=== PATIENT | male | born 1960 | race Caucasian/White ===

== ENCOUNTER 2019-05-03 07:13 | Emergency (ER) | payer MEDICAID, SELFPAY ==
[2019-05-03 07:22] VITALS: BP 176/101; PULSE 73; RESP 16; TEMP 37.1
--- NOTE | 2019-05-03 08:16 | W.ED.GENAD ---
Discharge Plan Disposition Patient Disposition: HOME Condition: Improving Discharge Details Chief Complaint: Dizzy/Sync Clinical Impression: Bilateral impacted cerumen, Peripheral vertigo, unspecified Primary Care Provider: None,None ED Provider: Tin Siddiqi Home Meds and New Rx's Prescriptions: New meclizine 25 mg tablet 25 mg PO BID-TID PRN (Reason: dizziness) Qty: 10 RF: 0 Discharge Instructions Instructions: Cerumen Impaction (ED), Vertigo (ED) Additional Instructions: Return to the emergency department for any new or worsening symptoms, headache, focal neurological deficits or changes, chest pain, or any further concerns. Otherwise follow-up with your primary care provider for reassessment if not improving on the next week. Referrals: [facility] [Provider Group] (As needed for reassessment) Medical Decision Making Patient presenting the emergency department chief complaint of dizziness. Patient states that this started yesterday and initially denies any specific inciting event. He does state for the last 2 weeks he has felt full in his ears and noticed some diminished hearing. He does state that he has history of significant wax buildup. Patient is very stoic and hard to get much details as he denies any other associated symptoms. 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 Patient does have on exam slight nystagmus to the lateral right gaze otherwise negative hints exam, nonfocal findings with Herb-Hallpike, normal neurological exam, normal cardiac exam. Patient is hypertensive otherwise stable vital signs in no acute signs of distress. Highly suspicious for peripheral vertigo and doubt any CVA, cardiac abnormality given reassuring EKG, and patient denying any other symptoms. Plan to treat with meclizine and Zofran, to remove cerumen that is impacted bilaterally, and reassess patient. After staff sonographer and myself irrigated and removed cerumen from both ear patient was reassessed and stated improvement of symptoms overall. Patient does state history of previous issues with his ears causing similar dizziness/vertigo. Given reassuring neurological exam and otherwise normal exam I feel that patient is safe to be discharged with close return precautions for any change in symptoms otherwise follow-up with primary care provider. After discussion of diagnosis and plan of care patient has no further needs, questions, or concerns and states clear understanding to return to the emergency department for any worsening symptoms. ECG Data Interpretation: EKG reviewed with Dr. Bhardwaj and shows sinus rhythm, rate of 72, no signs of ST elevated [place] HPI General Mode of arrival: ambulatory. Date/Time Provider Initiated Documentation: 05/03/19 07:58. Limitations to Documentation: no limitations. Information obtained by: patient and RN notes reviewed. History of Present Illness 58 year old M presents to the emergency department with the chief complaint of dizziness, described as moderate, Quality is described as other (denies pain), Patient started experiencing this day(s) (1) and it has been constant. No relieving factors improve symptom(s), Movement worsens symptoms . Patient notes no other symptoms.. Patient did receive the following treatments prior to arrival, none Related Data Home Medications Medication Instructions Recorded Confirmed meclizine 25 mg PO BID-TID PRN #10 tab 05/03/19 Previous Rx's Medication Instructions Recorded meclizine 25 mg PO BID-TID PRN #10 tab 05/03/19 Allergies Allergy/AdvReac Type Severity Reaction Status Date / Time codeine Allergy Unverified 05/03/19 08:23 General Stated Complaint: Dizzy/Sync QUINTEN: 3 Review of Systems Constitutional Denies body ache(s), Denies chills, Denies fever(s), Denies frequent falls and Denies headache(s) Eyes Denies change in vision ENT Reports dizziness, Reports otalgia (report ear fullness), Denies headache(s), Reports hearing loss (diminished ), Denies nasal congestion and Denies nasal discharge Cardiovascular Denies chest pain, Denies syncope and Denies dyspnea Respiratory Denies dyspnea Gastrointestinal Reports nausea and Reports vomiting Neurologic Reports as per HPI, Denies confusion, Reports dizziness, Denies syncope, Denies frequent falls, Denies headache(s), Denies focal weakness and Denies sensory deficit Psychiatric Denies confusion [facility] Social History Smoking/Tobacco Use Status: Never Alcohol Intake: current Alcohol Intake frequency: 3 or more drinks per day Substance use type: does not use Do you feel safe at home: Yes Do you feel safe in your relationship?: Yes Exam Const General: cooperative, healthy appearing, no acute distress and well groomed Orientation: alert, awake and oriented x3 HENMT Head: normal to inspection Ears: hearing grossly normal bilaterally, external ears normal and unable to visualize TM bilaterally (due to cerumen) Mouth: oral mucosae normal and moist mucous membranes Throat: posterior oropharynx normal Eyes Visual Oakes: normal visual oakes by confrontation Alignment and Position: alignment normal Periorbital: periorbital findings normal Eyelids: eyelids normal Sclera: sclerae normal Cornea: corneas normal Pupils: PERRL EOM: EOM intact bilaterally and nystagmus (Slightly with right lateral gaze) Neck Neck: normal visual inspection, full ROM, no lymphadenopathy and no meningeal signs Resp Effort & Inspection: normal respiratory effort and able to speak in complete sentences Auscultation: clear to auscultation bilaterally Cardio Rate: regular rate Rhythm: regular rhythm Heart Sounds: S1 normal and S2 normal Neuro General: alert, awake, oriented x3, gait normal, tone normal, moves all extremities, CN's II-XI intact bilaterally, not confused, Herb Hallpike (No lateralization noted) and other (Negative hints exam) Cranial Nerves: nystagmus (Slightly with right lateral gaze) Cognition: normal cognition Speech: speech normal Motor: muscle tone normal throughout, strength 5/5 throughout, no pronator drift and no movement abnormalities noted Sensory Exam: no sensory deficits noted Coordination: [id number] test normal, Romberg test normal and Does not sway with eyes open Course Vital Signs Temperature 37.1 C 05/03/19 07:22 Pulse 73 05/03/19 07:22 Respiratory Rate 16 05/03/19 07:22 Blood Pressure 176/101 H 05/03/19 07:22 Temperature 37.1 C 05/03/19 07:22 Temperature Source Temporal Artery Scan 05/03/19 07:22 Pulse 73 05/03/19 07:22 Respiratory Rate 16 05/03/19 07:22 Respiratory Effort 05/03/19 07:25 Blood Pressure 176/101 H 05/03/19 07:22 Oxygen Delivery Method Room Air 05/03/19 07:22 Oxygen Flow Rate 0 05/03/19 07:22 Procedures Ear Wax Removal Both Ears: Cerumenolytic Used: Cerumenex Results: Re-examined: cerumen removed completely TM Visible: TM(s) erythematous Ear Canal: atraumatic Patient Tolerated Procedure: well Technique: ear canal irrigated and ear canal curetted
[2019-05-03] MEDS: Meclizine 25 MG TAB PO (08:20)
[2019-05-03] MEDS: Ondansetron O.D.T. 4 MG TABEF PO (08:21)
--- NOTE | 2019-05-03 08:29 | ED.GENADUL_ITS ---
Discharge Plan Disposition Patient Disposition: HOME Condition: Improving Discharge Details Chief Complaint: Dizzy/Sync Clinical Impression: Bilateral impacted cerumen, Peripheral vertigo, unspecified Primary Care Provider: None,None ED Provider: Tin Siddiqi Home Meds and New Rx's Prescriptions: New meclizine 25 mg tablet 25 mg PO BID-TID PRN (Reason: dizziness) Qty: 10 RF: 0 Discharge Instructions Instructions: Cerumen Impaction (ED), Vertigo (ED) Additional Instructions: Return to the emergency department for any new or worsening symptoms, headache, focal neurological deficits or changes, chest pain, or any further concerns. Otherwise follow-up with your primary care provider for reassessment if not improving on the next week. Referrals: [facility] [Provider Group] (As needed for reassessment) Medical Decision Making Patient presenting the emergency department chief complaint of dizziness. Patient states that this started yesterday and initially denies any specific inciting event. He does state for the last 2 weeks he has felt full in his ears and noticed some diminished hearing. He does state that he has history of significant wax buildup. Patient is very stoic and hard to get much details as he denies any other associated symptoms. 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 Patient does have on exam slight nystagmus to the lateral right gaze otherwise negative hints exam, nonfocal findings with [place]- Hallpike, normal neurological exam, normal cardiac exam. Patient is hypertensive otherwise stable vital signs in no acute signs of distress. Highly suspicious for peripheral vertigo and doubt any CVA, cardiac abnormality given reassuring EKG, and patient denying any other symptoms. Plan to treat with meclizine and Zofran, to remove cerumen that is impacted bilaterally, and reassess patient. After staff anesthesiologist and myself irrigated and removed cerumen from both ear patient was reassessed and stated improvement of symptoms overall. Patient does state history of previous issues with his ears causing similar dizziness/vertigo. Given reassuring neurological exam and otherwise normal exam I feel that patient is safe to be discharged with close return precautions for any change in symptoms otherwise follow-up with primary care provider. After discussion of diagnosis and plan of care patient has no further needs, questions, or concerns and states clear understanding to return to the emergency department for any worsening symptoms. ECG Data Interpretation: EKG reviewed with Dr. Bhardwaj and shows sinus rhythm, rate of 72, no signs of ST elevated [place] HPI General Mode of arrival: ambulatory . Date/Time Provider Initiated Documentation: 05/03/19 07:58 . Limitations to Documentation: no limitations . Information obtained by: patient and RN notes reviewed . History of Present Illness 58 year old M presents to the emergency department with the chief complaint of dizziness, described as moderate, Quality is described as other (denies pain), Patient started experiencing this day(s) (1) and it has been constant. No relieving factors improve symptom(s), Movement worsens symptoms . Patient notes no other symptoms.. Patient did receive the following treatments prior to arrival, none Related Data Home Medications Medication Instructions Recorded Confirmed meclizine 25 mg PO BID-TID PRN #10 tab 05/03/19 Previous Rx's Medication Instructions Recorded meclizine 25 mg PO BID-TID PRN #10 tab 05/03/19 Allergies Allergy/AdvReac Type Severity Reaction Status Date / Time codeine Allergy Unverified 05/03/19 08:23 General Stated Complaint: Dizzy/Sync QUINTEN: 3 Review of Systems Constitutional Denies body ache(s), Denies chills, Denies fever(s), Denies frequent falls and Denies headache(s) Eyes Denies change in vision ENT Reports dizziness, Reports otalgia (report ear fullness), Denies headache(s), Reports hearing loss (diminished ), Denies nasal congestion and Denies nasal discharge Cardiovascular Denies chest pain, Denies syncope and Denies dyspnea Respiratory Denies dyspnea Gastrointestinal Reports nausea and Reports vomiting Neurologic Reports as per HPI, Denies confusion, Reports dizziness, Denies syncope, Denies frequent falls, Denies headache(s), Denies focal weakness and Denies sensory deficit Psychiatric Denies confusion [facility] Social History Smoking/Tobacco Use Status: Never Alcohol Intake: current Alcohol Intake frequency: 3 or more drinks per day Substance use type: does not use Do you feel safe at home: Yes Do you feel safe in your relationship?: Yes Exam Const General: cooperative, healthy appearing, no acute distress and well groomed Orientation: alert, awake and oriented x3 HENMT Head: normal to inspection Ears: hearing grossly normal bilaterally, external ears normal and unable to visualize TM bilaterally (due to cerumen) Mouth: oral mucosae normal and moist mucous membranes Throat: posterior oropharynx normal Eyes Visual Camara: normal visual camara by confrontation Alignment and Position: alignment normal Periorbital: periorbital findings normal Eyelids: eyelids normal Sclera: sclerae normal Cornea: corneas normal Pupils: PERRL EOM: EOM intact bilaterally and nystagmus (Slightly with right lateral gaze) Neck Neck: normal visual inspection, full ROM, no lymphadenopathy and no meningeal signs Resp Effort & Inspection: normal respiratory effort and able to speak in complete sentences Auscultation: clear to auscultation bilaterally Cardio Rate: regular rate Rhythm: regular rhythm Heart Sounds: S1 normal and S2 normal Neuro General: alert, awake, oriented x3, gait normal, tone normal, moves all extremities, CN's II-XI intact bilaterally, not confused, Herb Hallpike (No lateralization noted) and other (Negative hints exam) Cranial Nerves: nystagmus (Slightly with right lateral gaze) Cognition: normal cognition Speech: speech normal Motor: muscle tone normal throughout, strength 5/5 throughout, no pronator drift and no movement abnormalities noted Sensory Exam: no sensory deficits noted Coordination: [id number] test normal, Romberg test normal and Does not sway with eyes open Course Vital Signs Temperature 37.1 C 05/03/19 07:22 Pulse 73 05/03/19 07:22 Respiratory Rate 16 05/03/19 07:22 Blood Pressure 176/101 H 05/03/19 07:22 Temperature 37.1 C 05/03/19 07:22 Temperature Source Temporal Artery Scan 05/03/19 07:22 Pulse 73 05/03/19 07:22 Respiratory Rate 16 05/03/19 07:22 Respiratory Effort 05/03/19 07:25 Blood Pressure 176/101 H 05/03/19 07:22 Oxygen Delivery Method Room Air 05/03/19 07:22 Oxygen Flow Rate 0 05/03/19 07:22 Procedures Ear Wax Removal Both Ears: Cerumenolytic Used: Cerumenex Results: Re-examined: cerumen removed completely TM Visible: TM(s) erythematous Ear Canal: atraumatic Patient Tolerated Procedure: well Technique: ear canal irrigated and ear canal curetted
--- NOTE | 2019-05-03 08:31 | NUR.NOTE ---
Nursing Note: URI assessment documented in error. PT has no URI symptoms or complaints.
[2019-05-03 08:54] VITALS: PULSE 78; RESP 14; TEMP 37.1; O2SAT 96
--- NOTE | 2019-05-03 09:07 | NUR.NOTE ---
Nursing Note: Both ears irrigated per provider order. Moderate amount discharge removed from both ears.
== END 2019-05-03 09:49 | disposition home or self-care (01) ==
PROVIDERS: Emergency Provider Nurse Practitioner Family
DX: H61.23 Impacted cerumen, bilateral (principal); H81.393 Other peripheral vertigo, bilateral; I10 Essential (primary) hypertension
CPT/HCPCS: 69210; 93005; 99283; 93010

== ENCOUNTER 2021-11-18 13:08 | Observation (INO) | payer OTHER, SELFPAY ==
[2021-11-18] VITALS (51 sets, daily range): BP systolic 148–201; BP diastolic 77–141; PULSE 64–91; RESP 11–85; TEMP 36.4–36.8; O2SAT 92–99
--- NOTE | 2021-11-18 13:15 | DI.RAD_ITS ---
Exam(s) XR CHEST 2V PA LATERAL EXAM: XR CHEST 2V PA LATERAL CLINICAL HISTORY: facial numbness TECHNIQUE: 2D digital imaging was performed of the chest. Two images were obtained. PA and lateral views were obtained. COMPARISON: No exams were available for comparison FINDINGS: MEDIASTINUM: Normal. HEART: Normal. PULMONARY VASCULATURE: Normal. LUNGS: Clear. PLEURAL SPACE: No pleural effusion or pneumothorax. BONE:Within normal limits for the patient's age. OTHER FINDINGS:Normal. IMPRESSION: No acute pulmonary findings. DATA REPOSITORY: RADIATION DOSE DELIVERED:
--- NOTE | 2021-11-18 13:15 | RT.EKG_ITS ---
APPROVED REPORT Exam: Resting ECG Reason for Exam: TIA Patient Location: E HR:68 bpm ECG Measurements Heart Rate 68 AXIS AK 171 P 56 QRSd 95 QRS 45 QT 387 T 53 QTc 413 Conclusion Sinus rhythm...normal P axis, V-rate 60- 99
--- NOTE | 2021-11-18 13:15 | RT.EKG_ITS ---
APPROVED REPORT Exam: Resting ECG Reason for Exam: facial numbness Patient Location: E HR:72 bpm ECG Measurements Heart Rate 72 AXIS SD 164 P 51 QRSd 89 QRS 46 QT 369 T 57 QTc 404 Conclusion Sinus rhythm...normal P axis, V-rate 60- 99
--- NOTE | 2021-11-18 13:30 | DI.CT_ITS ---
Exam(s) CT HEAD - STROKE PROTOCOL CT BRAIN NECK CTA EXAM: CT HEAD - STROKE PROTOCOL CLINICAL HISTORY: R sided facial numbness. TECHNIQUE: Imaging Protocol: Axial CT angiography was performed with multi-slice acquisition and mu lti-planar and/or 3D reconstructions. CONTRAST MATERIAL: Intravenous: Omnipaque 350 Contrast volume:85 mL COMPARISON: No previous for comparison. FINDINGS: CT Head W/O and W: Ventricles and Extra axial spaces: Normal in size and morphology for the patient's age. Hemorrhage: None. Cerebral parenchyma: No evidence of an acute territorial infarct. There are areas of decreased atten uation in the white matter consistent with chronic microvascular ischemic disease. There is a round area of decreased attenuation in the left basal ganglia the likely reflecting a remote lacunar infarc t Midline shift: None. Brainstem/Cerebellum: Normal. Calvarium: Normal. Visualized Paranasal sinuses/Mastoids: Mucous retention cysts or polyps are seen in the maxillary sin uses. There is opacification of the left frontal sinus. The remaining visualized paranasal sinuses and mastoid air cells are clear. Soft Tissues: Unremarkable. Enhancement: Unremarkable. CTA Neck W: Common Carotid: Right: No dissection, occlusion or significant stenosis. Left: No dissection, occlusion or significant stenosis. External Carotid: Right: No occlusion or significant stenosis. Left: No occlusion or significant stenosis. Internal Carotid: Right: No dissection, occlusion or significant stenosis. Left: No dissection, occlusion or significant stenosis. Vertebral Artery: Right: No dissection, occlusion or significant stenosis. Left: No dissection, occlusion or significant stenosis. Lung Apices: Normal. Bones: Within normal limits for the patient's age. Moderate degenerative changes are seen in the cerv ical spine. Soft Tissues: Normal. Thyroid gland: There is a multinodular thyroid gland. The largest nodule lies in the left lobe measu res 2 cm. Nonemergent thyroid ultrasound should be considered for further evaluation. CTA Brain W: Internal Carotid Arteries: Normal. Mild atherosclerosis. Anterior Cerebral Arteries: Right: No aneurysm, occlusion or significant stenosis. Left: No aneurysm, occlusion or significant stenosis. Middle Cerebral Arteries: Right: No aneurysm, occlusion or significant stenosis. Left: No aneurysm, occlusion or significant stenosis. Posterior Cerebral Arteries: Right: No aneurysm, occlusion or significant stenosis. Left: No aneurysm, occlusion or significant stenosis. Vertebral Arteries: Right: No aneurysm, occlusion or significant stenosis. Left: No aneurysm, occlusion or significant stenosis. Basilar Artery: No aneurysm, occlusion or significant stenosis. IMPRESSION: 1. No large vessel occlusion or significant stenosis on the CT angiography of the head. 2. No acute intracranial process. 3. No occlusion or significant stenosis on the CT angiography of the neck. 4. Multinodular thyroid gland. The largest nodule appears to measure 2 cm in the left lobe. Nonemer gent thyroid ultrasound is recommended for further evaluation. RADIATION DOSE DELIVERED: 2,126.38mGy.cm Total DLP 2,126.38mGy.cm Total DLP DATA REPOSITORY: All CT scans at this facility are submitted to the National Radiology Data Registry (NRDR) Dose Index Registry (DIR) with the [employer] (ACR). RADIATION OPTIMIZATION: All CT scans at this facility use at least one of these dose optimization te chniques: automated exposure control; mA and/or kV adjustment per patient size (includes targeted exa ms where dose is matched to clinical indication); or iterative reconstruction.
[2021-11-18 13:48] LABS: Abs Immature Grans 0.01 10^3/uL (0.0-0.06); Absolute Basophil Count 0.03 10^3/uL (0.0-0.2); Absolute Eosinophil Count 0.06 10^3/uL (0.0-0.7); Absolute Lymphocyte Count 1.56 10^3/uL (1.2-3.4); Absolute Monocyte Count 0.19 10^3/uL (0.1-0.8); Absolute Neutrophil Count 1.61 10^3/uL (1.2-6.7); Basophils % 0.9; Eosinophils % 1.7; HCT 48.7 % (40.0-50.0); HGB 16.2 g/dL (13.5-17.5); Immature Grans % 0.3; Lymphocytes % 45.1; MCH 29.5 pg (27.0-33.0); MCHC 33.3 % (32.0-36.0); MCV 88.5 fL (80-95); MPV 9.2 fL (8.0-11.0); Monocytes % 5.5; Neutrophils % 46.5; Nucleated RBC 0 %; RDW 12.2 % (11.8-14.1); RDW-SD 39.6 fL; WBC 3.46 10^3/uL (4.4-10.8)
[2021-11-18 14:02] LABS: Platelet Count 81 10^3/uL (130-400)
[2021-11-18 14:08] LABS: INR 1.1 (0.9-1.1); Prothrombin Time 11.4 sec (9.3-11.0)
--- NOTE | 2021-11-18 14:13 | ED.GENADUL_ITS ---
Discharge Plan Disposition Patient Disposition: STILL A PATIENT Condition: Stable Discharge Details Clinical Impression: Rt facial numbness Primary Care Provider: None,None ED Provider: Di Scott Home Meds and New Rx's Prescriptions: No Action No Known Home Meds RF: 0 Medical Decision Making <CONSTANTINE Church - Last Filed: 11/18/21 16:56> This is a 61-year-old gentleman presenting to the ER for right sided facial numbness began around 10 AM this morning and resolved on its own in approximately 10 minutes. He report similar episodes over the summer but never had any medical evaluation at that time. He does not have a primary care provider and does not take any medications currently. He is currently asymptomatic and neurologically intact. Plan is to obtain CT imaging of the brain and CTA of brain and neck as well as initiating a cardiac work-up. We will also place the patient on the care management list of expedite outpatient primary care follow-up. He presents hypertensive at 201/98 but denies any headache, visual changes, neck pain, chest pain, shortness of breath, numbness, tingling, weakness. Repeat blood pressure although hypertensive is trending downward. Will monitor his blood pressure closely. Medical Records Medical records reviewed: Yes I reviewed the patient's medical records. Imaging Data Radiologic Study: Attestation: I personally reviewed and interpreted this imaging study as follows: Imaging: CT Scan Radiologist's impression: Exam(s) CT HEAD - STROKE PROTOCOL CT BRAIN NECK CTA EXAM: CT HEAD - STROKE PROTOCOL CLINICAL HISTORY: R sided facial numbness. TECHNIQUE: Imaging Protocol: Axial CT angiography was performed with multi- slice acquisition and multi-planar and/or 3D reconstructions. CONTRAST MATERIAL: Intravenous: Omnipaque 350 Contrast volume:85 mL COMPARISON: No previous for comparison. FINDINGS: CT Head W/O and W: Ventricles and Extra axial spaces: Normal in size and morphology for the patient's age. Hemorrhage: None. Cerebral parenchyma: No evidence of an acute territorial infarct. There are a reas of decreased attenuation in the white matter consistent with chronic microvascular ischemic disease. There is a round area of decreased attenuation in the left basal ganglia the likely reflecting a remote lacunar infarct Midline shift: None. Brainstem/Cerebellum: Normal. Calvarium: Normal. Visualized Paranasal sinuses/Mastoids: Mucous retention cysts or polyps are seen in the maxillary sinuses. There is opacification of the left frontal sinus. The remaining visualized paranasal sinuses and mastoid air cells are clear. Soft Tissues: Unremarkable. Enhancement: Unremarkable. CTA Neck W: Common Carotid: Right: No dissection, occlusion or significant stenosis. Left: No dissection, occlusion or significant stenosis. External Carotid: Right: No occlusion or significant stenosis. Left: No occlusion or significant stenosis. Internal Carotid: Right: No dissection, occlusion or significant stenosis. Left: No dissection, occlusion or significant stenosis. Vertebral Artery: Right: No dissection, occlusion or significant stenosis. Left: No dissection, occlusion or significant stenosis. Lung Apices: Normal. Bones: Within normal limits for the patient's age. Moderate degenerative changes are seen in the cervical spine. Soft Tissues: Normal. Thyroid gland: There is a multinodular thyroid gland. The largest nodule lies in the left lobe measures 2 cm. Nonemergent thyroid ultrasound should be considered for further evaluation. CTA Brain W: Internal Carotid Arteries: Normal. Mild atherosclerosis. Anterior Cerebral Arteries: Right: No aneurysm, occlusion or significant stenosis. Left: No aneurysm, occlusion or significant stenosis. Middle Cerebral Arteries: Right: No aneurysm, occlusion or significant stenosis. Left: No aneurysm, occlusion or significant stenosis. Posterior Cerebral Arteries: Right: No aneurysm, occlusion or significant stenosis. Left: No aneurysm, occlusion or significant stenosis. Vertebral Arteries: Right: No aneurysm, occlusion or significant stenosis. Left: No aneurysm, occlusion or significant stenosis. Basilar Artery: No aneurysm, occlusion or significant stenosis. IMPRESSION: 1. No large vessel occlusion or significant stenosis on the CT angiography of the head. 2. No acute intracranial process. 3. No occlusion or significant stenosis on the CT angiography of the neck. 4. Multinodular thyroid gland. The largest nodule appears to measure 2 cm in the left lobe. Nonemergent thyroid ultrasound is recommended for further evaluation. Radiologic Study #2: Attestation: I personally reviewed and interpreted this imaging study as follows: Imaging: X-Ray Radiologist's impression: XR CHEST 2V PA LATERAL CLINICAL HISTORY facial numbness TECHNIQUE 2D digital imaging was performed of the chest. [Two] images were obtained. [PA and lateral][][] views were obtained. COMPARISON [No exams were available for comparison] [] FINDINGS MEDIASTINUM: [Normal.] [] HEART: [Normal.] [] PULMONARY VASCULATURE: [Normal.] [] LUNGS: [Clear.] [] PLEURAL SPACE: [No pleural effusion or pneumothorax.] [] BONE:[Within normal limits for the patient's age.] [] OTHER FINDINGS:[Normal.] [] IMPRESSION [No acute pulmonary findings. Lab Data Lab results reviewed: Yes I reviewed the patient's lab results. Labs: Laboratory Tests Range/Units 11/18/21 11/18/21 11/18/21 13:35 13:35 13:35 WBC (4.4-10.8) 10^3/uL 3.46 L RBC (4.36-5.78) 10^6/uL 5.50 Hgb (13.5-17.5) g/dL 16.2 Hct (40.0-50.0) % 48.7 MCV (80-95) fL 88.5 MCH (27.0-33.0) pg 29.5 MCHC (32.0-36.0) % 33.3 RDW (11.8-14.1) % 12.2 Plt Count (130-400) 10^3/uL 81 L MPV (8.0-11.0) fL 9.2 Immature Gran % 0.3 Neutrophils % 46.5 Lymphocytes % 45.1 Monocytes % 5.5 Eosinophils % 1.7 Basophils % 0.9 Nucleated RBC % % 0 Absolute Neutrophils (1.2-6.7) 10^3/uL 1.61 Absolute Lymphocytes (1.2-3.4) 10^3/uL 1.56 Absolute Monocytes (0.1-0.8) 10^3/uL 0.19 Absolute Eosinophils (0.0-0.7) 10^3/uL 0.06 Absolute Basophils (0.0-0.2) 10^3/uL 0.03 PT (9.3-11.0) sec 11.4 H INR (0.9-1.1) 1.1 Sodium (136-145) mmol/L 141 Potassium (3.5-5.1) mmol/L 4.6 Chloride (98-107) mmol/L 105 Carbon Dioxide (21.0-32.0) mmol/L 29.4 Anion Gap (3-11) mmol/L 6.6 BUN (7-18) mg/dL 12 Creatinine (0.70-1.30) mg/dL 1.0 Estimated GFR/1.73 m2 (mL/min/1.73m2) >= 60.00 Glucose (74-106) mg/dL 109 H Calcium (8.5-10.1) mg/dL 9.0 Magnesium (1.8-2.4) mg/dL 2.4 Total Bilirubin (0.2-1.0) mg/dL 0.7 AST (15-37) U/L 16 ALT (16-63) U/L 25 Alkaline Phosphatase (46-116) U/L 37 L Troponin I (<or=60) ng/L < 50 Total Protein (6.4-8.2) g/dL 7.7 Albumin (3.4-5.0) g/dL 4.2 Urine Color (Yellow) Urine Clarity (Clear) Urine pH (5-8) Ur Specific Gallagher (1.005-1.025) Urine Protein (Negative) mg/dL Urine Ketones (Negative) mg/dL Urine Blood (Negative) Urine Nitrite (Negative) Urine Bilirubin (Negative) Urine Urobilinogen (Up TO 0.2) EU/dL Ur Leukocyte Esterase (Negative) Urine Glucose (Negative) mg/dL Ethyl Alcohol (<10) mg/dL < 10.0 Range/Units 11/18/ 14:00 WBC (4.4-10.8) 10^3/uL RBC (4.36-5.78) 10^6/uL Hgb (13.5-17.5) g/dL Hct (40.0-50.0) % MCV (80-95) fL MCH (27.0-33.0) pg MCHC (32.0-36.0) % RDW (11.8-14.1) % Plt Count (130-400) 10^3/uL MPV (8.0-11.0) fL Immature Gran % Neutrophils % Lymphocytes % Monocytes % Eosinophils % Basophils % Nucleated RBC % % Absolute Neutrophils (1.2-6.7) 10^3/uL Absolute Lymphocytes (1.2-3.4) 10^3/uL Absolute Monocytes (0.1-0.8) 10^3/uL Absolute Eosinophils (0.0-0.7) 10^3/uL Absolute Basophils (0.0-0.2) 10^3/uL PT (9.3-11.0) sec INR (0.9-1.1) Sodium (136-145) mmol/L Potassium (3.5-5.1) mmol/L Chloride (98-107) mmol/L Carbon Dioxide (21.0-32.0) mmol/L Anion Gap (3-11) mmol/L BUN (7-18) mg/dL Creatinine (0.70-1.30) mg/dL Estimated GFR/1.73 m2 (mL/min/1.73m2) Glucose (74-106) mg/dL Calcium (8.5-10.1) mg/dL Magnesium (1.8-2.4) mg/dL Total Bilirubin (0.2-1.0) mg/dL AST (15-37) U/L ALT (16-63) U/L Alkaline Phosphatase (46-116) U/L Troponin I (<or=60) ng/L Total Protein (6.4-8.2) g/dL Albumin (3.4-5.0) g/dL Urine Color (Yellow) Yellow Urine Clarity (Clear) Clear Urine pH (5-8) 6.0 Ur Specific Gallagher (1.005-1.025) 1.020 Urine Protein (Negative) mg/dL Negative Urine Ketones (Negative) mg/dL Negative Urine Blood (Negative) Negative Urine Nitrite (Negative) Negative Urine Bilirubin (Negative) Negative Urine Urobilinogen (Up TO 0.2) EU/dL 0.2 Ur Leukocyte Esterase (Negative) Negative Urine Glucose (Negative) mg/dL Negative Ethyl Alcohol (<10) mg/dL ECG Data Attestation: I personally reviewed and interpreted this ECG (s) as follows: Interpretation: Please see official report by Dr. Bhagat. Sinus rhythm, ventricular rate of 72, no STEMI. <CONSTANTINE Chen - Last Filed: 11/18/21 18:20> Care accepted in signout from Mmeo Lee physician buyer assistant Patient had a TIA. ABCD 2 score is 3, he has no outpatient primary care physician think at this time he benefit from admission to the hospital Given 162 mg of aspirin and Plavix 75 He is agreeable to admission at this time He is neurologically intact and pre and post assessment Case discussed with Dr. Wallace is willing to accept patient HPI <CONSTANTINE Church - Last Filed: 11/18/21 16:56> General Mode of arrival: ambulatory . Date/Time Provider Initiated Documentation: 11/18/21 13:09 . Limitations to Documentation: no limitations . Information obtained by: patient and family . HPI Narrative: This is a 61-year-old gentleman, reports drinking at least 6 alcoholic drinks daily, presenting to the ER for evaluation of right facial numbness. Patient states that approximately 10:00 this morning while doing the dishes the right side of his face went numb, denies weakness, and this lasted for approximately 10 minutes. He states this same thing happened a few times this summer but he never sought any medical attention. He does not have a primary care doctor and has not seen a doctor in many years. He is fully vaccinated against Covid. He denies any headache, visual changes, neck pain, chest pain, shortness of breath, abdominal pain, nausea, vomiting, numbness, tingling, weakness in his extremities. He is currently asymptomatic. Related Data Home Medications Medication Instructions Recorded Confirmed Unknown [No Known Home Meds] 11/18/21 11/18/21 Allergies Allergy/AdvReac Type Severity Reaction Status Date / Time codeine Allergy Unverified 11/18/21 13:20 General Stated Complaint: CVA/TIA QUINTEN: 3 Review of Systems <CONSTANTINE Church - Last Filed: 11/18/21 16:56> Constitutional Constitutional: Denies fatigue, Denies fever(s), Denies headache(s) and Denies weakness Eyes Eyes: Denies change in vision ENT Ears, Nose, Mouth, and Throat: Denies headache(s) Cardiovascular Cardiovascular: Denies chest pain and Denies dyspnea Respiratory Respiratory: Denies cough and Denies dyspnea Gastrointestinal Gastrointestinal: Denies abdominal pain, Denies nausea and Denies vomiting Genitourinary Genitourinary: Denies dysuria Musculoskeletal Musculoskeletal: Denies back pain and Denies tingling Integumentary/Breasts Skin/Breast: Denies rash Neurologic Neurologic: Denies headache(s), Reports numbness (Resolved), Denies tingling and Denies weakness Endocrine Endocrine: Denies fatigue Hematologic/Lymphatic Hematologic/Lymphatic: Denies easy bleeding and Denies easy bruising PFSH <CONSTANTINE Church - Last Filed: 11/18/21 16:56> All Active Problems (Updated 11/18/21 @ 15:44 by CONSTANTINE Cuhrch) Rt facial numbness (Acute) Social History Smoking/Tobacco Use Status: Never Smoking risk assessment performed?: Yes Alcohol Intake: current Alcohol Intake frequency: 3 or more drinks per day Alcohol type: beer Substance use type: does not use Do you feel safe at home: Yes Do you feel safe in your relationship?: Yes Exam <CONSTANTINE Church - Last Filed: 11/18/21 16:56> Const General: cooperative, healthy appearing, comfortable and no acute distress Orientation: alert, awake and oriented x3 HENMT Head: normal to inspection, normocephalic and atraumatic Face and sinus: normal facial exam Mouth: moist mucous membranes Eyes General: appearance normal, both eyes and all related structures Alignment and Position: alignment normal Periorbital: periorbital findings normal Eyelids: eyelids normal Conjunctivae: conjunctivae normal Sclera: sclerae normal Cornea: corneas normal Pupils: PERRL EOM: EOM intact bilaterally Direct ophthalmoscopy: normal light reflex Neck Neck: normal visual inspection, full ROM, no meningeal signs, trachea midline, supple and nontender Resp Effort & Inspection: normal respiratory effort and able to speak in complete sentences Auscultation: clear to auscultation bilaterally Cardio Rate: regular rate Rhythm: regular rhythm GI Palpation: soft, not firm, no guarding, no pulsatile masses and nontender Back/Spine/Pelvis Back: No back tenderness Skin General skin exam: no rashes or lesions noted Neuro General: patient alert, patient awake, patient oriented x3, moves all extremities and no focal motor deficits Cranial Nerves: CN's II-XI intact bilaterally Cognition: normal cognition Speech: speech normal Gait: normal gait Motor: muscle tone normal throughout, strength 5/5 throughout, no pronator drift, no movement abnormalities noted and no fasciculations Sensory Exam: no sensory deficits noted Coordination: [id number] test normal and Does not sway with eyes open Extrem General: normal to inspection, full ROM, capillary refill normal, no pedal edema and no calf tenderness Psych Appearance: grossly normal Mental Status: mental status grossly normal Course <CONSTANTINE Church - Last Filed: 11/18/21 16:56> Vital Signs Vital signs: Vital Signs Temperature 36.4 C L 11/18/21 13:13 Pulse 77 11/18/21 13:13 Respiratory Rate 16 11/18/21 13:13 Blood Pressure 201/98 H 11/18/21 13:13 Pulse Oximetry 97 11/18/21 13:13 Temperature 36.4 C L 11/18/21 13:13 Temperature Source Skin 11/18/21 13:13 Pulse 77 11/18/21 13:13 Respiratory Rate 16 11/18/21 13:13 Respiratory Effort Non-Labored 11/18/21 13:13 Blood Pressure 201/98 H 11/18/21 13:13 Blood Pressure Position Sitting 11/18/21 13:13 Pulse Oximetry 97 11/18/21 13:13 Oxygen Delivery Method Room Air 11/18/21 13:13 Oxygen Flow Rate 0 11/18/21 13:13 Pain Level 0 11/18/21 13:13 Lab/Test Results Lab/Test Results: Laboratory Tests Range/Units 11/18/21 13:35 WBC (4.4-10.8) 10^3/uL 3.46 L RBC (4.36-5.78) 10^6/uL 5.50 Hgb (13.5-17.5) g/dL 16.2 Hct (40.0-50.0) % 48.7 MCV (80-95) fL 88.5 MCH (27.0-33.0) pg 29.5 MCHC (32.0-36.0) % 33.3 RDW (11.8-14.1) % 12.2 Plt Count (130-400) 10^3/uL 81 L MPV (8.0-11.0) fL 9.2 Immature Gran % 0.3 Neutrophils % 46.5 Lymphocytes % 45.1 Monocytes % 5.5 Eosinophils % 1.7 Basophils % 0.9 Nucleated RBC % % 0 Absolute Neutrophils (1.2-6.7) 10^3/uL 1.61 Absolute Lymphocytes (1.2-3.4) 10^3/uL 1.56 Absolute Monocytes (0.1-0.8) 10^3/uL 0.19 Absolute Eosinophils (0.0-0.7) 10^3/uL 0.06 Absolute Basophils (0.0-0.2) 10^3/uL 0.03 Sign Out <CONSTANTINE Church - Last Filed: 11/18/21 16:56> Sign Out Data: Sign Out Comment: Presented for a right sided facial numbness that lasted for 10 minutes, began at 10 AM, asymptomatic now. Similar symptoms over the summer. Normal CTA of the neck and brain and CT of the brain. Work-up thus far unremarkable. He presented hypertensive blood pressure is trending downward, monitoring closely. Patient placed on the care management list to help expedite outpatient primary care follow-up. Currently neurologically intact. Awaiting delta troponin, reassessment, and potential hypertension intervention. Last updated by Memo Lee PA at 11/18/21 15:47 PAWSS <CONSTANTINE Church - Last Filed: 11/18/21 16:56> Have you Been Recently Intoxicated or Drunk Within the Last 30 days?: Yes Have you Ever Experienced Previous Episodes of Alcohol Withdrawal?: Yes Have you ever Experienced Withdrawal Seizures?: No Have you ever Experienced Delirium Tremens(DT)s?: No Have you ever undergone Alcohol Rehabilitation Treatment (i.e, inpt ot outpatient treatment programs)?: No Have you ever Experienced Blackouts?: No Have you ever Combined Alcohol with other Downers within the last 90 days?: No Have you ever Combined Alcohol with any other Substance of Abuse during the last 90 days?: No Positive Blood Alcohol level on Presentation? [PCS.BAL]: No Evidence of Increased Autonomic Activity (i.e. HR>120, tremor, sweating, agitation, nausea)?: No Result: 2
[2021-11-18 14:17] LABS: ALT 25 U/L (16-63); AST 16 U/L (15-37); Albumin 4.2 g/dL (3.4-5.0); Alkaline Phosphatase 37 U/L (46-116); Anion Gap 6.6 mmol/L (3-11); BUN 12 mg/dL (7-18); Bilirubin, Total 0.7 mg/dL (0.2-1.0); CO2 29.4 mmol/L (21.0-32.0); Chloride 105 mmol/L (98-107); Glucose 109 mg/dL (74-106); Magnesium 2.4 mg/dL (1.8-2.4); Potassium 4.6 mmol/L (3.5-5.1); Sodium 141 mmol/L (136-145); Total Protein 7.7 g/dL (6.4-8.2); Troponin I < 50 ng/L (<or=60)
[2021-11-18 14:18] LABS: Bilirubin Negative (Negative); Blood Negative (Negative); Clarity Clear (Clear); Glucose Negative (Negative); Ketones Negative (Negative); Leukocyte Esterase Negative (Negative); Nitrite Negative (Negative); Urobilinogen 0.2 EU/dL (Up TO 0.2)
[2021-11-18 14:23] LABS: ETHANOL BLOOD < 10.0 mg/dL (<10)
[2021-11-18] MEDS: Omnipaque 350 MG/ML 100 ML BTL 85 ML IJ (14:56)
--- NOTE | 2021-11-18 15:39 | NUR.NOTE ---
Nursing Note: CARE MANAGMENT GIVEN PT INFO TO ESTABLISH PCP. [facility]
[2021-11-18 16:58] LABS: Troponin I < 50 ng/L (<or=60)
[2021-11-18] MEDS: Clopidogrel 75 MG TAB PO (17:23)
[2021-11-18] MEDS: Aspirin 81 MG CHEW 162 MG CH (17:23)
[2021-11-18 18:53] LABS: COVID-19 PCR Negative (Negative); Source Nasal/Nares
--- NOTE | 2021-11-19 | DI.MRI_ITS ---
Exam(s) MR BRAIN WO/W EXAM: MR BRAIN WO/W CLINICAL HISTORY: facial paresthesia TECHNIQUE: Multiplanar multisequence MRI of the brain was performed. CONTRAST MATERIAL: IV Contrast: 19 ML of Dotarem contrast administered. COMPARISON: CT CT HEAD - STROKE PROTOCOL from 11/18/[address] HEAD - STROKE PROTOCOL from 11/18/2021 FINDINGS: VENTRICLES AND EXTRA AXIAL SPACES: Normal in size and morphology for the patient's age. HEMORRHAGE: None. CEREBRAL PARENCHYMA: No focus of restricted diffusion to suggest acute infarct. No space-occupying le mikala identified. There are few areas of hyperintense signal on the FLAIR and T2 weighted images in th e white matter likely reflecting chronic microvascular ischemic disease. MIDLINE SHIFT: None. BRAINSTEM/CEREBELLUM: Normal. CALVARIUM: Normal. ENHANCEMENT: No suspicious enhancement identified. VISUALIZED PARANASAL SINUSES/MASTOIDS: Small mucous retention cysts or polyps are seen in the maxilla ry sinuses. There is opacification of the left frontal sinus. There is also opacification of the ri ght mastoid air cells. [place]: Normal flow void. PIT[place]ARY [place]AND: Unremarkable. OTHER FINDINGS: IMPRESSION: No evidence of an intracranial mass, enhancing lesion or acute infarct. DATA REPOSITORY:
[2021-11-19 03:22] VITALS: BP 145/91; PULSE 63; RESP 20; TEMP 36.9; O2SAT 91
--- NOTE | 2021-11-19 06:56 | W.PM.HP.N ---
Date of service: 11/18/21 Time of Service: 18:08 Assessment and Plan Assessment and plan (1) Rt facial numbness: Status: Acute Assessment and plan: No findings on CT brain, CTA brain/neck. MRI ordered / pending. Possible result of hypertensive emergency. Aspirin now; then re-evaluate whether daily aspirin indicated after further investigations / MRI. (2) Alcohol abuse: Status: Chronic Assessment and plan: Daily intake of alcohol since age of 18. Monitor for withdrawal; did not initiate CIWA precautions but ordered prn ativan. Anticipate d/c after MRI today. He is not interested in alcohol cessation at this time. Encouraged him to begin cutting back and then discuss further when he has established with a PCP. Thiamine and folic acid initiated. (3) Hypertension: Status: Chronic Assessment and plan: On no medications. Hasn't had medical care for appx 10 years. BP elevated on admission and has improved. Initiate amlodipine 5 mg daily. He will be scheduled for a hospital follow up. He would like to have a PCP at the [facility]. History of Present Illness History of Present Illness Chief Complaint: Numbness of right cheek Narrative: This is a 61-year-old [facility] and reports drinking at least 6-8 alcoholic drinks daily, presenting to the ER for evaluation of right facial numbness. Patient states that approximately 10:00 on the morning of admission while doing the dishes the right side of his face felt numb; denies weakness, and this lasted for approximately 10 minutes. He endorsed similar symptoms on occasion over the past summer. He is fully vaccinated against Covid. No headache, visual changes, neck pain, chest pain, shortness of breath, abdominal pain, nausea, vomiting, numbness, tingling, weakness in his extremities. At the time of admission he was asymptomatic. CT head, CTA head/neck w/o acute findings. Incidently finding of multinodular thyroid. Lab was unremarkable other than a mild leukocytosis of 3.46, platelets of 81. Initial BP of 201/98. EKG showed NSR w/o ST, T-wave abnormalities. Review of Systems All systems reviewed & are unremarkable except as noted in HPI and below PFSH All Active Problems (Updated 11/19/21 @ 07:08 by Kilo Martinez MD) Hypertension (Chronic) Alcohol abuse (Chronic) Rt facial numbness (Acute) Social History Smoking/Tobacco Use Status: Never Smoking risk assessment performed?: Yes Alcohol Intake: current Alcohol Intake frequency: 3 or more drinks per day Alcohol type: beer Substance use type: does not use Do you feel safe at home: Yes Do you feel safe in your relationship?: Yes Meds Allergies and Home Medications Allergies Allergy/AdvReac Type Severity Reaction Status Date / Time codeine Allergy Unverified 11/18/21 13:20 Home Medications Medication Instructions Recorded Confirmed Type Unknown [No Known Home Meds] 11/18/21 11/18/21 History Exam Const General: cooperative and no acute distress Nutritional Appearance: overweight Orientation: alert and oriented x3 HENMT Head: normocephalic Ears: hearing grossly normal bilaterally Eyes General: appearance normal, both eyes and all related structures Sclera: sclerae normal Pupils: PERRL Neck Neck: full ROM and no JVD Resp Effort & Inspection: normal respiratory effort Auscultation: clear to auscultation bilaterally Cardio Rate: regular rate Rhythm: regular rhythm Heart Sounds: S1 normal and S2 normal GI Inspection: normal to inspection Palpation: soft and nontender Skin General skin exam: no rashes or lesions noted Neuro General: no focal motor deficits Cranial Nerves: facial strength normal Cognition: normal cognition Speech: speech normal Extrem General: no pedal edema and no calf tenderness Results Labs Result diagrams: 11/19/21 07:05 11/18/21 13:35 Labs: Laboratory Results - last 24 hr 11/18/21 11/18/21 11/18/21 13:35 13:35 13:35 WBC 3.46 L RBC 5.50 Hgb 16.2 Hct 48.7 MCV 88.5 MCH 29.5 MCHC 33.3 RDW 12.2 Plt Count 81 L MPV 9.2 Immature Gran % 0.3 Neutrophils % 46.5 Lymphocytes % 45.1 Monocytes % 5.5 Eosinophils % 1.7 Basophils % 0.9 Nucleated RBC % 0 Absolute Neutrophils 1.61 Absolute Lymphocytes 1.56 Absolute Monocytes 0.19 Absolute Eosinophils 0.06 Absolute Basophils 0.03 PT 11.4 H INR 1.1 Sodium 141 Potassium 4.6 Chloride 105 Carbon Dioxide 29.4 Anion Gap 6.6 BUN 12 Creatinine 1.0 Estimated GFR/1.73 m2 >= 60.00 Glucose 109 H Calcium 9.0 Magnesium 2.4 Total Bilirubin 0.7 AST 16 ALT 25 Alkaline Phosphatase 37 L Troponin I < 50 Total Protein 7.7 Albumin 4.2 Urine Color Urine Clarity Urine pH Ur Specific [employer] Urine Protein Urine Ketones Urine Blood Urine Nitrite Urine Bilirubin Urine Urobilinogen Ur Leukocyte Esterase Urine Glucose Ethyl Alcohol < 10.0 COVID-19 Source SARS-CoV-2 (PCR) 11/18/21 11/18/21 11/18/21 14:00 16:35 17:40 WBC RBC Hgb Hct MCV MCH MCHC RDW Plt Count MPV Immature Gran % Neutrophils % Lymphocytes % Monocytes % Eosinophils % Basophils % Nucleated RBC % Absolute Neutrophils Absolute Lymphocytes Absolute Monocytes Absolute Eosinophils Absolute Basophils PT INR Sodium Potassium Chloride Carbon Dioxide Anion Gap BUN Creatinine Estimated GFR/1.73 m2 Glucose Calcium Magnesium Total Bilirubin AST ALT Alkaline Phosphatase Troponin I < 50 Total Protein Albumin Urine Color Yellow Urine Clarity Clear Urine pH 6.0 Ur Specific [employer] 1.020 Urine Protein Negative Urine Ketones Negative Urine Blood Negative Urine Nitrite Negative Urine Bilirubin Negative Urine Urobilinogen 0.2 Ur Leukocyte Esterase Negative Urine Glucose Negative Ethyl Alcohol COVID-19 Source Nasal/Nares SARS-CoV-2 (PCR) Negative Last Vital Signs Temp 36.9 C 11/19/21 03:22 Pulse 63 11/19/21 03:22 Resp 20 11/19/21 03:22 BP 145/91 H 11/19/21 03:22 Pulse Ox 91 L 11/19/21 03:22 PAWSS Have you Been Recently Intoxicated or Drunk Within the Last 30 days?: Yes Have you Ever Experienced Previous Episodes of Alcohol Withdrawal?: Yes Have you ever Experienced Withdrawal Seizures?: No Have you ever Experienced Delirium Tremens(DT)s?: No Have you ever undergone Alcohol Rehabilitation Treatment (i.e, inpt ot outpatient treatment programs)?: No Have you ever Experienced Blackouts?: No Have you ever Combined Alcohol with other Downers within the last 90 days?: No Have you ever Combined Alcohol with any other Substance of Abuse during the last 90 days?: No Positive Blood Alcohol level on Presentation? [PCS.BAL]: No Evidence of Increased Autonomic Activity (i.e. HR>120, tremor, sweating, agitation, nausea)?: No Result: 2
[2021-11-19 07:00] VITALS: PULSE 78
[2021-11-19 07:34] LABS: Abs Immature Grans 0.01 10^3/uL (0.0-0.06); Absolute Basophil Count 0.02 10^3/uL (0.0-0.2); Absolute Eosinophil Count 0.07 10^3/uL (0.0-0.7); Basophils % 0.6; HCT 45.8 % (40.0-50.0); HGB 15.3 g/dL (13.5-17.5); Immature Grans % 0.3; Lymphocytes % 48.2; MCH 29.7 pg (27.0-33.0); MCHC 33.4 % (32.0-36.0); MCV 88.9 fL (80-95); MPV 9.8 fL (8.0-11.0); Monocytes % 5.7; Neutrophils % 43.2; Nucleated RBC 0 %; RBC 5.15 10^6/uL (4.36-5.78); RDW 12.3 % (11.8-14.1); RDW-SD 40.3 fL; WBC 3.53 10^3/uL (4.4-10.8)
[2021-11-19 07:35] LABS: Absolute Neutrophil Count 1.52 10^3/uL (1.2-6.7)
[2021-11-19 07:44] LABS: Platelet Count 72 10^3/uL (130-400)
[2021-11-19 07:57] VITALS: BP 160/93; PULSE 72; RESP 16; TEMP 37.2; O2SAT 93
[2021-11-19 08:43] LABS: Hemoglobin A1C 6.1 % (<5.7)
[2021-11-19] MEDS: Thiamine 100 MG TAB PO (09:00)
[2021-11-19] MEDS: amLODIPine 5 MG TAB PO (09:00)
[2021-11-19] MEDS: Aspirin 81 MG CHEW PO (09:00)
[2021-11-19] MEDS: Folic Acid 1 MG TAB PO (09:00)
[2021-11-19 09:44] LABS: Calculated LDL 145 mg/dL (<100); Cholesterol 196 mg/dL (<200); HDL Cholesterol 30 mg/dL (40-60); TSH 0.73 uIU/mL (0.36-3.74); Triglyceride 107 mg/dL (<150)
--- NOTE | 2021-11-19 10:26 | DSE_ITS ---
Date of service: 11/19/21 Time of Service: 10:26 DS: Diagnosis Discharge Diagnosis (1) Rt facial numbness: Status: Acute (2) Alcohol abuse: Status: Chronic (3) Hypertension: Status: Chronic Discharge Plan Disposition Patient Disposition: HOME Condition: Stable Discharge Details Reason For Visit: TIA Admit Date/Time: 11/18/21 17:28 Admit Provider: Kilo Martinez Attending Provider: Kilo Martinez Primary Care Provider: None,None Hospital Course Hospital Course: This is a 61-year-old male that has not seen a physician in appx 10 years and reports drinking at least 6-8 alcoholic drinks daily, presenting to the ER for evaluation of right facial numbness. Patient states that approximately 10:00 on the morning of admission while doing the dishes the right side of his face felt numb; denies weakness, and this lasted for approximately 10 minutes. He endorsed similar symptoms on occasion over the past summer. He is fully vaccinated against Covid. No headache, visual changes, neck pain, chest pain, shortness of breath, abdominal pain, nausea, vomiting, numbness, tingling, weakness in his extremities. At the time of admission he was asymptomatic. CT head, CTA head/neck w/o acute findings. Incidentally finding of multinodular thyroid. Lab was unremarkable other than a mild leukocytosis of 3.46, platelets of 81. Initial BP of 201/98. EKG showed NSR w/o ST, T-wave abnormalities. He was started on amlodipine and referred to observation for further evaluation and management. overnight he remained in NSR with no reoccurrence of symptoms. His MRI showed no evidence of acute intracranial findings. He was symptom free and stable for discharge. new prescription for amlodipine and pcp referral for f/u. discharged to home with no services. Home Meds and New Rx's Prescriptions: New amlodipine 5 mg Tablet 5 mg PO DAILY Qty: 30 RF: 0 aspirin 81 mg Tablet,Chewable 81 mg PO DAILY Qty: 30 RF: 0 thiamine mononitrate (vit B1) [Vitamin B-1 (mononitrate)] 100 mg Tablet 100 mg PO DAILY Qty: 30 RF: 0 Discharge Instructions Instructions: Hypertension (DC), Prediabetes (DC) Additional Instructions: monitor your blood pressures 2-3 times weekly and record to bring to follow up appointment. your hemoglobin A1C is elevated at 6.1 which is pre-diabetic. you should have diabetes education through your primary care provider. Stand Alone Forms: Nursing Discharge Form Referrals: None,None [Primary Care Provider] - (establish with pcp and make an appointment in the next 3 weeks ) Activity:: Activity as Tolerated Equipment/Supplies:: No Equipment Needed Diet:: Carb Counting Discharge Orders Discharge Orders: Discharge Order (Routine); Ordered 11/19/21 Ordered By: Cecily Carey Discharge Data Discharge Date/Time-TO BE ENTERED AT DEPARTURE: 11/19/21 15:05 DS: Summary Time Spent with Patient providing and/or coordinating discharge services: Less than 30 minutes Status at Discharge Functional status at discharge: independent ambulation Overall status at discharge: patient is back to baseline Mental Status: mental status grossly normal Speech and Movement: speech and movement normal Mood: congruent mood Affect: normal affect Exam Const General: cooperative and no acute distress Nutritional Appearance: overweight Orientation: alert and oriented x3 HENMT Head: normocephalic Ears: hearing grossly normal bilaterally Eyes General: appearance normal, both eyes and all related structures Neck Neck: full ROM and no JVD Resp Effort & Inspection: normal respiratory effort Auscultation: clear to auscultation bilaterally Cardio Rate: regular rate Rhythm: regular rhythm GI Inspection: normal to inspection Palpation: soft and nontender Skin General skin exam: no rashes or lesions noted Neuro General: no focal motor deficits Cranial Nerves: facial strength normal Cognition: normal cognition Speech: speech normal Extrem General: no pedal edema and no calf tenderness Psych Mental Status: mental status grossly normal Speech and Movement: speech and movement normal Mood: congruent mood Affect: normal affect DS: Data Vitals/I&O Vitals and I&O: Vital Signs Temperature 37.2 C 11/19/21 07:57 Temperature Source Temporal Artery Scan 11/19/21 07:57 Pulse 72 11/19/21 07:57 Pulse Rhythm Regular 11/19/21 09:41 Pulse 75 11/18/21 18:16 Respiratory Rate 16 11/19/21 07:57 Respiratory Effort Non-Labored 11/19/21 09:41 Respiratory Depth Normal 11/19/21 09:41 Respiratory Pattern Normal 11/19/21 09:41 Blood Pressure 160/93 H 11/19/21 07:57 Blood Pressure Mean 110 11/18/21 18:16 Blood Pressure Position Sitting 11/18/21 13:13 Pulse Oximetry 93 11/19/21 07:57 Oxygen Delivery Method Room Air 11/19/21 07:57 Oxygen Flow Rate 0 11/19/21 07:57 Pain Level 0 11/19/21 07:57 Intake & Output 11/18/21 11/18/21 11/19/21 11:59 23:59 11:59 Intake Total 120 / 120 Balance 120 / 120 Weight 89.358 kg Intake: Oral 120 / 120 Other: Urine Appearance Clear Data Completed and Pending Labs on day of discharge: Labs from last 24 hours 11/19/21 11/19/21 11/19/21 07:05 07:05 07:05 WBC 3.53 L RBC 5.15 Hgb 15.3 Hct 45.8 MCV 88.9 MCH 29.7 MCHC 33.4 RDW 12.3 Plt Count 72 L MPV 9.8 Immature Gran % 0.3 Neutrophils % 43.2 Lymphocytes % 48.2 Monocytes % 5.7 Eosinophils % 2.0 Basophils % 0.6 Nucleated RBC % 0 Absolute Neutrophils 1.52 Absolute Lymphocytes 1.70 Absolute Monocytes 0.20 Absolute Eosinophils 0.07 Absolute Basophils 0.02 PT INR Sodium Potassium Chloride Carbon Dioxide Anion Gap BUN Creatinine Estimated GFR/1.73 m2 Glucose Hemoglobin A1c 6.1 H Calcium Magnesium Total Bilirubin AST ALT Alkaline Phosphatase Troponin I Total Protein Albumin Triglycerides 107 Total Cholesterol 196 LDL Cholesterol, Calc 145 H HDL Cholesterol 30 L TSH 0.73 Urine Color Urine Clarity Urine pH Ur Specific [place] Urine Protein Urine Ketones Urine Blood Urine Nitrite Urine Bilirubin Urine Urobilinogen Ur Leukocyte Esterase Urine Glucose Ethyl Alcohol COVID-19 Source SARS-CoV-2 (PCR) 11/18/21 11/18/21 11/18/21 17:40 16:35 14:00 WBC RBC Hgb Hct MCV MCH MCHC RDW Plt Count MPV Immature Gran % Neutrophils % Lymphocytes % Monocytes % Eosinophils % Basophils % Nucleated RBC % Absolute Neutrophils Absolute Lymphocytes Absolute Monocytes Absolute Eosinophils Absolute Basophils PT INR Sodium Potassium Chloride Carbon Dioxide Anion Gap BUN Creatinine Estimated GFR/1.73 m2 Glucose Hemoglobin A1c Calcium Magnesium Total Bilirubin AST ALT Alkaline Phosphatase Troponin I < 50 Total Protein Albumin Triglycerides Total Cholesterol LDL Cholesterol, Calc HDL Cholesterol TSH Urine Color Yellow Urine Clarity Clear Urine pH 6.0 Ur Specific [place] 1.020 Urine Protein Negative Urine Ketones Negative Urine Blood Negative Urine Nitrite Negative Urine Bilirubin Negative Urine Urobilinogen 0.2 Ur Leukocyte Esterase Negative Urine Glucose Negative Ethyl Alcohol COVID-19 Source Nasal/Nares SARS-CoV-2 (PCR) Negative 11/18/21 11/18/21 11/18/21 13:35 13:35 13:35 WBC 3.46 L RBC 5.50 Hgb 16.2 Hct 48.7 MCV 88.5 MCH 29.5 MCHC 33.3 RDW 12.2 Plt Count 81 L MPV 9.2 Immature Gran % 0.3 Neutrophils % 46.5 Lymphocytes % 45.1 Monocytes % 5.5 Eosinophils % 1.7 Basophils % 0.9 Nucleated RBC % 0 Absolute Neutrophils 1.61 Absolute Lymphocytes 1.56 Absolute Monocytes 0.19 Absolute Eosinophils 0.06 Absolute Basophils 0.03 PT 11.4 H INR 1.1 Sodium 141 Potassium 4.6 Chloride 105 Carbon Dioxide 29.4 Anion Gap 6.6 BUN 12 Creatinine 1.0 Estimated GFR/1.73 m2 >= 60.00 Glucose 109 H Hemoglobin A1c Calcium 9.0 Magnesium 2.4 Total Bilirubin 0.7 AST 16 ALT 25 Alkaline Phosphatase 37 L Troponin I < 50 Total Protein 7.7 Albumin 4.2 Triglycerides Total Cholesterol LDL Cholesterol, Calc HDL Cholesterol TSH Urine Color Urine Clarity Urine pH Ur Specific [place] Urine Protein Urine Ketones Urine Blood Urine Nitrite Urine Bilirubin Urine Urobilinogen Ur Leukocyte Esterase Urine Glucose Ethyl Alcohol < 10.0 COVID-19 Source SARS-CoV-2 (PCR) PFSH All Active Problems (Updated 11/19/21 @ 07:08 by Kilo Martinez MD) Hypertension (Chronic) Alcohol abuse (Chronic) Rt facial numbness (Acute) Social History Smoking/Tobacco Use Status: Never Smoking risk assessment performed?: Yes Alcohol Intake: current Alcohol Intake frequency: 3 or more drinks per day Alcohol type: beer Substance use type: does not use Do you feel safe at home: Yes Do you feel safe in your relationship?: Yes
[2021-11-19 11:06] VITALS: BP 186/97; PULSE 79; RESP 16; TEMP 35.8; O2SAT 95
[2021-11-19] MEDS: LORazepam 1 MG TAB PO (11:30)
[2021-11-19] MEDS: Gadoterate meglumine 20 ML VIAL 19 ML IVP (12:06)
[2021-11-19 13:30] VITALS: PULSE 86
== END 2021-11-19 15:05 | disposition home or self-care (01) ==
LOC: ER 16:52 → MS 18:42
PROVIDERS: Physician Assistant; Admitting Provider Family Medicine; Emergency Provider Physician Assistant; Visit Provider Family Medicine
DX: R20.0 Anesthesia of skin (principal); I10 Essential (primary) hypertension; R73.03 Prediabetes; F10.10 Alcohol abuse, uncomplicated; Z20.822 Contact with and (suspected) exposure to COVID-19
CPT/HCPCS: 36415; 36416; 70496; 70498; 70553; 80053; 80061; 82962; 87635; 93005; 99285; 70450; 71046; 80320; 81003; 83036; 83735; 84443; 84484; 85025; 85610; 93010; 99217; 99220; 99284; G0378; J3490

== ENCOUNTER 2021-12-31 03:20 | Outpatient (CLI) | payer OTHER, SELFPAY ==
[2021-12-31 10:17] LABS: HCT 47.7 % (40.0-50.0); HGB 15.9 g/dL (13.5-17.5); MCH 29.2 pg (27.0-33.0); MCHC 33.3 % (32.0-36.0); MCV 87.7 fL (80-95); MPV 9.1 fL (8.0-11.0); RBC 5.44 10^6/uL (4.36-5.78); RDW 12.8 % (11.8-14.1); RDW-SD 40.5 fL; WBC 4.01 10^3/uL (4.4-10.8)
[2021-12-31 11:05] LABS: Platelet Count 89 10^3/uL (130-400)
[2021-12-31 16:43] LABS: PSA, Screening 0.5 ng/mL (0.0-4.5)
[2022-01-01 10:00] LABS: HIV-1/2 Ag & Ab Screen Negative (Negative)
[2022-01-01 10:18] LABS: Lyme Ab w Rflx to Lyme Confirm Negative (Negative)
[2022-01-01 10:22] LABS: Hepatitis C Ab w Rflx HCV PCR Negative (Negative)
== END 2021-12-31 03:21 | disposition home or self-care (01) ==
LOC: LBO 03:20
PROVIDERS: PCP Family Medicine; Visit Provider Family Medicine
DX: D69.6 Thrombocytopenia, unspecified (principal); E04.2 Nontoxic multinodular goiter; I10 Essential (primary) hypertension; R20.0 Anesthesia of skin; Z11.59 Encounter for screening for other viral diseases; Z12.5 Encounter for screening for malignant neoplasm of prostate; Z11.4 Encounter for screening for human immunodeficiency virus [HIV]
CPT/HCPCS: 36415; 84153; 85027; 86803; 87389; 86618

== ENCOUNTER 2024-05-21 08:39 | Emergency (ER) | payer MEDICAID, SELFPAY ==
[2024-05-21 08:43] VITALS: BP 171/87; PULSE 82; RESP 20; TEMP 36.3; O2SAT 99
--- NOTE | 2024-05-21 08:45 | DI.RAD_ITS ---
Exam(s) XR ANKLE RT COMPLETE EXAM: XR ANKLE RT COMPLETE CLINICAL HISTORY: pain at posterior calcaneous. TECHNIQUE: 2D digital imaging was performed. Three views. COMPARISON: No exams were available for comparison FINDINGS: BONES: No acute fracture is present. No bony destructive lesion is seen. Prominent spurring at the A chilles insertion. Adjacent soft tissue swelling. JOINTS: The ankle mortise is normally aligned. SOFT TISSUE: Swelling around lateral malleolus.. IMPRESSION: Prominent heel spur. Soft tissue swelling. No fracture or ankle mortise widening. DATA REPOSITORY: RADIATION DOSE DELIVERED:
--- NOTE | 2024-05-21 08:53 | ED.GENADUL_ITS ---
Discharge Plan Disposition Patient Disposition: Home Condition: Good Discharge Details Clinical Impression: Achilles bursitis or tendinitis Primary Care Provider: Maxim Garcia ED Provider: Aly Angel Home Meds and New Rx's Prescriptions: No Action telmisartan 20 mg tablet 20 mg PO DAILY Qty: 90 1RF amlodipine 10 mg tablet 10 mg PO DAILY Qty: 90 3RF thiamine mononitrate (vit B1) [Vitamin B-1 (mononitrate)] 100 mg tablet 100 mg PO DAILY Qty: 90 3RF aspirin 81 mg Tablet,Chewable 81 mg PO DAILY Qty: 30 0RF Discharge Instructions Instructions: Achilles Tendinopathy Exercises Additional Instructions: At this time your x-ray shows no evidence of fracture. Your symptoms appear to be consistent with irritation of your Achilles tendon. Please perform the stretching exercises as I showed you. Stretch your Achilles tendon 5-10 times per day as directed. Please apply the Voltaren gel 2-3 times per day to your heel/sore spots. Please take Tylenol and Motrin at home every day to help with the pain. Please ice the area frequency. Please use arch supports in your shoe to help relieve some of the stress on your foot and Achilles tendon. If you notice any worsening of your symptoms, or any new symptoms such as vomiting, diarrhea, fever, chills, shortness of breath, chest pain, numbness, weakness, or fainting , please return immediately to the emergency department for reevaluation. Please follow up with your primary care provider as soon as possible for reassessment and reevaluation. As always, it was a pleasure participating in your medical care today. Referrals: Maxim Garcia MD [Primary Care Provider] - Discharge Data Discharge Date/Time-TO BE ENTERED AT DEPARTURE: 05/21/24 09:21 HPI General Date/Time Provider Initiated Documentation: 05/21/24 08:41 . HPI Narrative: 63-year-old male with a past medical history of thrombocytopenia, hypertension, and previous alcohol abuse presents today for right heel pain. Patient states that for the last week he has had pain on the back of his heel. 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 He denies fever or chills. He denies any direct trauma. He denies any numbness or tingling. He denies any pain in his foot or his calf. No other complaints at this time. He has started occasional Tylenol and Motrin with only minimal improvement. Related Data Home Medications Medication Instructions Recorded Confirmed aspirin 81 mg chewable tablet 81 mg PO DAILY #30 tabs 11/19/21 05/21/24 amlodipine 10 mg tablet 10 mg PO DAILY #90 tabs 08/10/23 05/21/24 telmisartan 20 mg tablet 20 mg PO DAILY #90 tabs 08/10/23 05/21/24 thiamine mononitrate (vit B1) 100 100 mg PO DAILY #90 tabs 08/10/23 05/21/24 mg tablet (Vitamin B-1 (mononitrate)) Previous Rx's Medication Instructions Recorded aspirin 81 mg chewable tablet 81 mg PO DAILY #30 tabs 11/19/21 amlodipine 10 mg tablet 10 mg PO DAILY #90 tabs 08/10/23 telmisartan 20 mg tablet 20 mg PO DAILY #90 tabs 08/10/23 thiamine mononitrate (vit B1) 100 100 mg PO DAILY #90 tabs 08/10/23 mg tablet (Vitamin B-1 (mononitrate)) Allergies Allergy/AdvReac Type Severity Reaction Status Date / Time codeine Allergy Unknown Unverified 05/21/24 08:46 General Stated Complaint: Orthopedic QUINTEN: 4 Review of Systems All systems reviewed & are unremarkable except as noted in HPI and below Exam Narrative Exam Narrative: 1.Const: Well-nourished, Well-developed, appearing stated age 2.Eyes: PERRL, no conjunctival injection, and symmetrical lids. 3.ENT: Atraumatic external nose and ears. Moist MM. Neck: Symmetric, trachea midline, No thyromegaly. 4.CVS: +S1/S2, No murmurs or gallops. Peripheral pulses 2+ and equal in all extremities. Brisk capillary refill in all extremities. 5.RESP: Unlabored respiratory effort. Clear to auscultation bilaterally. No wheezes rales or rhonchi 6.GI: Soft, Nontender/Nondistended, No hepatosplenomegaly. No guarding or rebound. 7.MSK: Normocephalic/Atraumatic, Extremities w/o deformity. No cyanosis or clubbing, Normal movement of all extremities. Mild tenderness over the posterior aspect of the calcaneus specifically at the Achilles tendon insertion site.. No tenderness on the base of the calcaneus. No tenderness on the mid or proximal Achilles tendon. Negative Homans' sign. Normal plantar and dorsiflexion strength. No redness or warmth to suggest cellulitis. 8.Skin: Warm, Dry. No rashes or lesions. 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 Sensation grossly intact, no focal neurologic deficits. 10.Psych: (AAO) x3. Appropriate mood and affect Course Vital Signs Vital signs: Vital Signs Temperature 36.3 C L 05/21/24 08:43 Pulse 82 05/21/24 08:43 Respiratory Rate 20 05/21/24 08:43 Blood Pressure 171/87 H 05/21/24 08:43 Pulse Oximetry 99 05/21/24 08:43 Temperature 36.3 C L 05/21/24 08:43 Temperature Source Temporal Artery Scan 05/21/24 08:43 Pulse 82 05/21/24 08:43 Respiratory Rate 20 05/21/24 08:43 Respiratory Effort Normal, Non-Labored 05/21/24 08:47 Blood Pressure 171/87 H 05/21/24 08:43 Blood Pressure Position Sitting 05/21/24 08:43 Pulse Oximetry 99 05/21/24 08:43 Oxygen Delivery Method Room Air 05/21/24 08:43 Oxygen Flow Rate 0 05/21/24 08:43 Medical Decision Making 63-year-old male with a past medical history of thrombocytopenia, hypertension, and previous alcohol abuse presents today for right heel pain. Patient states that for the last week he has had pain on the back of his heel. 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 He denies fever or chills. He denies any direct trauma. He denies any numbness or tingling. He denies any pain in his foot or his calf. No other complaints at this time. He has started occasional Tylenol and Motrin with only minimal improvement. Mild tenderness over the posterior aspect of the calcaneus specifically at the Achilles tendon insertion site. No tenderness on the base of the calcaneus. No tenderness on the mid or proximal Achilles tendon. Negative Homans' sign. Normal plantar and dorsiflexion strength. No redness or warmth to suggest cellulitis. Symptoms are concerning for mild calcaneal bursitis versus tendini tis at this insertion site on the calcaneus. Symptoms do not appear consistent with plantar fasciitis, Achilles tendon rupture, DVT, or other abnormality. Will get an x-ray to rule out calcaneal fracture, will apply Voltaren gel give Tylenol and Motrin recommend arch support, monitor closely and reassess. 9:12 AM X-ray shows no evidence of gross fracture or abnormality. Notable osteophyte on posterior calcaneus, likely the current source of the patient's irritation. Will recommend NSAIDs at home, Voltaren gel, stretching, and ice. Recommend arch supports as well. Patient stable for discharge. Feeling better after NSAID therapy administered here. Discussed red flags which to return. I have extensively reviewed the treatment plan and discharge instructions with the patient. I have addressed all patient concerns at this time. The patient was made aware of what symptoms to monitor for that would warrant a return to the emergency department. Discussed the plan with the patient, they demonstrate verbal understanding and agreement with our assessment and plan at this time. The documentation in this chart was dictated using [employer] dictation software. Please excuse any dictation errors. FINDINGS: Bones/joints: No acute fracture or dislocation. Spurring along the posterior calcaneus. Soft tissues: Lateral soft tissue swelling. IMPRESSION: Lateral soft tissue swelling. Thank you for allowing us to participate in the care of your patient. Dictated and Authenticated by: Mili Vail MD 05/21/2024 10:27 AM Eastern Time ([place] & [place] Quality:SDOH Health Related Social Needs: No Data to Display PFSH All Active Problems Achilles bursitis or tendinitis (Acute) Reflux esophagitis (Acute) Thrombocytopenia (Chronic) 10/2021, Platelets-81 Multinodular thyroid (Acute) 10/2021-incidental finding-on CT scan, normal TSH 11/2021-TThyroid US-multinodular thyroid with dominant nodule 2.5 x 2.7 cm on the left-T RADS 4-biopsy recommended Essential hypertension (Acute) Alcohol abuse (Chronic) 10/2021-6-8 beers a day Medical History Diverticulosis Anxiety Back problem Seizures Ulcer Hypertension Alcohol abuse Rt facial numbness Surgical History History of esophagogastroduodenoscopy (EGD) Family History Father Hypertension Heart disease Mother Diabetes Social History Smoking/Tobacco Use Status: Never Smoking risk assessment performed?: Yes Alcohol Intake: current Alcohol Intake frequency: 3 or more drinks per day Alcohol type: beer Drug use: Never Substance use type: does not use Household members: spouse Number of Children: 3 current occupation: [employer] Do you feel safe at home: Yes Do you feel safe in your relationship?: Yes
[2024-05-21] MEDS: Ibuprofen 800 MG TAB PO (08:59)
[2024-05-21] MEDS: Acetaminophen 500 MG TAB 1000 MG PO (08:59)
[2024-05-21] MEDS: Diclofenac 1% Gel 100 GM TUBE TP (08:59)
--- NOTE | 2024-05-21 10:28 | DI.VRAD_ITS ---
PROCEDURE INFORMATION: Exam: XR Right Ankle Exam date and time: 05/21/2024 9:01 AM Age: 63 years old Clinical indication: Pain; Ankle; Right TECHNIQUE: Imaging protocol: Radiologic exam of the right ankle. Views: 3 or more views. COMPARISON: No relevant prior studies available. FINDINGS: Bones/joints: No acute fracture or dislocation. Spurring along the posterior calcaneus. Soft tissues: Lateral soft tissue swelling. IMPRESSION: Lateral soft tissue swelling. Dictated and Authenticated by: Mili Vail MD. Ordering:ANAND Lu MD
== END 2024-05-21 09:21 | disposition home or self-care (01) ==
PROVIDERS: Emergency Provider Student in an Organized Health Care Education/Training Program; PCP Family Medicine
DX: M76.61 Achilles tendinitis, right leg (principal); I10 Essential (primary) hypertension; Z79.82 Long term (current) use of aspirin
CPT/HCPCS: 99283; 73610